=== PATIENT | male | born 1980 | race Caucasian/White ===

== ENCOUNTER 2016-12-17 04:58 | Emergency (ER) | payer OTHER ==
--- NOTE | 2016-12-17 05:17 | EDM.PDOC ---
ED HPI GENERAL MEDICAL PROBLEM - General Chief Complaint: General Stated Complaint: HEAD INJURY Time Seen by Provider: 12/17/16 05:02 - History of Present Illness INITIAL COMMENTS - FREE TEXT/NARRATIVE: HISTORY AND PHYSICAL: History of present illness: The patient is a 36-year-old male with a history of "hyperthyroidism" for which he does not take medications who presents with complaints of a persistent headache and some nausea since getting the right side of his head behind his right ear on Friday night, 3 days ago. The patient states he was working on a car and was using a tool and when they both gave way he sits back and with the force of the release it himself in the head with a tool he was using. He did not pass out or black out and he did not fall to the ground. He has no neck or back pain and has no neurologic changes such as weakness numbness or tingling and no dizziness or lightheadedness. He states initially he had some dull pain at the area of swelling which is improved but today he started having more of a headache in that area and it seemed to radiate and he was worried. He does state that he looked up on the Internet some information and wanted to come here for evaluation. Is not taking anything for his headache such as Tylenol or Motrin. Review of systems: As per history of present illness and below otherwise all systems reviewed and negative. Past medical history: As per history of present illness and as reviewed below otherwise noncontributory. Surgical history: As per history of present illness and as reviewed below otherwise noncontributory. Social history: No reported history of drug or alcohol abuse. Family history: As per history of present illness and as reviewed below otherwise noncontributory. Physical exam: General: Well-developed well-nourished male who is nontoxic and speaks clearly and easily in ED. He moves without any distress and his vital signs are noted by me. HEENT: Atraumatic, normocephalic, there are no palpable bony deformities of the scalp or skull and no soft tissue swelling redness or ecchymosis appreciated. The patient indicates the area at the right occipital soft tissue scalp near the mastoid and the area of tenderness but I do not appreciate any deformities or swelling in this region. The pupils are reactive, negative for conjunctival pallor or scleral icterus, mucous membranes moist, throat clear, neck supple, nontender, trachea midline. There are no midline step-offs and is defects of the cervical spine Lungs: Clear to auscultation, breath sounds equal bilaterally, chest nontender. Heart: S1S2, regular in rhythm no overt murmurs Abdomen: Soft, nondistended, nontender. NABS. Pelvis: Deferred Genitourinary: Deferred. Rectal: Deferred. Extremities: Atraumatic, negative for cords or calf pain. Neurovascular unremarkable. Neuro: Awake, alert, oriented. Cranial nerves II through XII unremarkable. Cerebellum unremarkable. Motor and sensory unremarkable throughout. Exam nonfocal. Gait intact Diagnostics: I offered the patient a CT scan of the head if he wanted more reassurance but I do not feel that it was clinically indicated due to the timeframe and the mechanism of injury. We had a dialogue about head injuries and he feels comfortable not having the CAT scan at this time. Therapeutics: I offered the patient Tylenol or Motrin and he says he will take it when he gets home Impression: Minor head injury/scalp contusion subacute Definitive disposition and diagnosis as appropriate pending reevaluation and review of above. left side head/neck Pain Score (Numeric/FACES): 8 - Related Data Allergies Allergy/AdvReac Type Severity Reaction Status Date / Time No Known Allergies Allergy Verified 12/17/16 05:03 Home Meds: Home Meds . [No Known Home Meds] 12/17/16 [History] Past Medical History - Past Health History Medical/Surgical History: Denies Medical/Surgical History HEENT History: Reports: None Cardiovascular History: Reports: None Respiratory History: Reports: None Gastrointestinal History: Reports: None Genitourinary History: Reports: None Musculoskeletal History: Reports: None Neurological History: Reports: None Psychiatric History: Reports: None Endocrine/Metabolic History: Reports: Hyperthyroidism Hematologic History: Reports: None Oncologic (Cancer) History: Reports: None Dermatologic History: Reports: None - Infectious Disease History Infectious Disease History: Reports: None - Past Surgical History HEENT Surgical History: Reports: None Cardiovascular Surgical History: Reports: None Respiratory Surgical History: Reports: None GI Surgical History: Reports: None Male Surgical History: Reports: None Musculoskeletal Surgical History: Reports: None Social & Family History - Family History Family Medical History: Noncontributory - Tobacco Use Smoking Status *Q: Current Every Day Smoker Years of Tobacco use: 15 Packs/Tins Daily: 0.5 - Recreational Drug Use Recreational Drug Use: No ED ROS GENERAL - Review of Systems Review Of Systems: ROS reveals no pertinent complaints other than HPI. ED EXAM, GENERAL - Physical Exam Exam: See Below (See dictation) Course - Vital Signs Last Recorded V/S: Last Vital Signs Temp 36.6 C 12/17/16 05:04 Pulse 95 12/17/16 05:04 Resp 16 12/17/16 05:04 BP 127/77 12/17/16 05:04 Pulse Ox 99 12/17/16 05:04 Departure - Departure Time of Disposition: 05:21 Disposition: Home, Self-Care 01 Condition: good Clinical Impression: Scalp contusion Qualifiers: Encounter type: initial encounter Qualified Code(s): S00.03XA - Contusion of scalp, initial encounter Blunt head trauma Qualifiers: Encounter type: initial encounter Qualified Code(s): S09.8XXA - Other specified injuries of head, initial encounter - Discharge Information Forms: ED Department Discharge Additional Instructions: The following information is given to patients seen in the emergency department who are being discharged to home. This information is to outline your options for follow-up care. We provide all patients seen in our emergency department with a follow-up referral. The need for follow-up, as well as the timing and circumstances, are variable depending upon the specifics of your emergency department visit. If you don't have a primary care physician on staff, we will provide you with a referral. We always advise you to contact your personal physician following an emergency department visit to inform them of the circumstance of the visit and for follow-up with them and/or the need for any referrals to a consulting specialist. The emergency department will also refer you to a specialist when appropriate. This referral assures that you have the opportunity for followup care with a specialist. All of these measure are taken in an effort to provide you with optimal care, which includes your followup. Under all circumstances we always encourage you to contact your private physician who remains a resource for coordinating your care. When calling for followup care, please make the office aware that this follow-up is from your recent emergency room visit. If for any reason you are refused follow-up, please contact the [facility] emergency department at and ask to speak to the emergency department charge nurse. CANDIDO [facility] Primary care- Internal Medicine and Family [place] [id number] [address] [place], [place] [id number] Please take [id number] Tylenol or ibuprofen for pain and apply ice to area after working if there is sense of inflammation or discomfort. Please followup with local family DrLarry and return to ER as needed and as discussed
[2016-12-17 05:40] VITALS: BP 137/70
== END 2016-12-17 05:37 | disposition home or self-care (01) ==
LOC: MW.ED 04:58
DX: S00.03XA Contusion of scalp, initial encounter (principal); E05.90 Thyrotoxicosis, unspecified without thyrotoxic crisis or storm; F17.210 Nicotine dependence, cigarettes, uncomplicated; X58.XXXA Exposure to other specified factors, initial encounter
CPT/HCPCS: 99282; 99283

== ENCOUNTER 2021-01-23 01:28 | Emergency (ER) | payer SELFPAY ==
--- NOTE | 2021-01-23 01:30 | EDM.PDOC ---
ED HPI GENERAL MEDICAL PROBLEM - General Stated Complaint: BODY ACHES, SWEATS, FEELS WARM Time Seen by Provider: 01/23/21 01:29 Source of Information: Reports: Patient History Limitations: Reports: No Limitations - History of Present Illness INITIAL COMMENTS - FREE TEXT/NARRATIVE: 40-year-old male presents for 9 days of fever, body aches, nonproductive cough, nausea, headache, loss of taste and smell. He has not had the COVID-19 vaccination. He does not have any direct exposure that he is aware of but notes that his daughter was around family member that did test positive for Covid. No vomiting but does feel nauseated. Has been taking Tylenol and Motrin at home with minimal relief. Denies shortness of breath. Bilateral Back Pain Score (Numeric/FACES): 8 - Related Data Allergies Allergy/AdvReac Type Severity Reaction Status Date / Time No Known Allergies Allergy Verified 01/23/21 01:37 Home Meds: Home Meds Ibuprofen [Motrin] 600 mg PO Q6H PRN #30 tab 01/23/21 [Rx] Ondansetron [Zofran ODT] 4 mg PO Q6H PRN #12 tab.dis 01/23/21 [Rx] Past Medical History - Past Health History Medical/Surgical History: Denies Medical/Surgical History HEENT History: Reports: None Cardiovascular History: Reports: None Respiratory History: Reports: None Gastrointestinal History: Reports: None Genitourinary History: Reports: None Musculoskeletal History: Reports: None Neurological History: Reports: None Psychiatric History: Reports: None Endocrine/Metabolic History: Reports: Hyperthyroidism Hematologic History: Reports: None Oncologic (Cancer) History: Reports: None Dermatologic History: Reports: None - Infectious Disease History Infectious Disease History: Reports: None - Past Surgical History HEENT Surgical History: Reports: None Cardiovascular Surgical History: Reports: None Respiratory Surgical History: Reports: None GI Surgical History: Reports: None Male Surgical History: Reports: None Musculoskeletal Surgical History: Reports: None Social & Family History - Family History Family Medical History: No Pertinent Family History ED ROS GENERAL - Review of Systems Review Of Systems: Comprehensive ROS is negative, except as noted in HPI. ED EXAM, GENERAL - Physical Exam Exam: See Below Exam Limited By: No Limitations General Appearance: Alert, WD/WN, No Apparent Distress Ears: Hearing Grossly Normal Nose: Normal Inspection Throat/Mouth: Normal Inspection, Normal Oropharynx, Normal Voice, No Airway Compromise Head: Atraumatic, Normocephalic Neck: Normal Inspection, Supple, Non-Tender Respiratory/Chest: No Respiratory Distress, Lungs Clear, Normal Breath Sounds, No Accessory Muscle Use Cardiovascular: Normal Peripheral Pulses, Tachycardia Extremities: Normal Inspection Neurological: Alert, Normal Cognition, Normal Gait Psychiatric: Normal Affect, Normal Mood Skin Exam: Warm, Dry, Intact, Normal Color Course - Vital Signs Last Recorded V/S: Last Vital Signs Temp 99.8 F 01/23/21 02:00 Pulse 103 H 01/23/21 01:38 Resp 19 01/23/21 01:38 BP 122/84 01/23/21 01:38 Pulse Ox 96 01/23/21 01:38 - Orders/Labs/Meds Orders: Active Orders 24 hr Category Date Time Status Chest 1V Frontal [CR] Stat Exams 01/23/21 01:49 Taken Sodium Chloride 0.9% [Normal Saline] 1,000 ml Med 01/23/21 01:48 Active IV .Bolus Sodium Chloride 0.9% [Saline Flush] Med 01/23/21 01:48 Active 10 ml FLUSH ASDIRECTED PRN Sodium Chloride 0.9% [Saline Flush] Med 01/23/21 01:48 Active 2.5 ml FLUSH ASDIRECTED PRN Saline Lock Insert [OM.PC] Stat Oth 01/23/21 01:48 Ordered Medication Orders Sodium Chloride (Normal Saline) 1,000 mls @ 999 mls/hr IV .Bolus ONE Stop: 01/23/21 02:48 Last Admin: 01/23/21 01:59 Dose: 999 mls/hr Documented by: SEANIKKIIC Sodium Chloride (Sodium Chloride 0.9% 10 Ml Syringe) 10 ml FLUSH ASDIRECTED PRN PRN Reason: Keep Vein Open Last Admin: 01/23/21 01:58 Dose: 10 ml Documented by: SEAGMSANTOS Sodium Chloride (Sodium Chloride 0.9% 2.5 Ml Syringe) 2.5 ml FLUSH ASDIRECTED PRN PRN Reason: Keep Vein Open Last Admin: 01/23/21 01:59 Dose: 2.5 ml Documented by: ELA Labs: Laboratory Tests 01/23/21 01/23/21 01/23/21 Range/Units 01:45 01:50 01:50 WBC 6.41 (4.0-11.0) K/uL RBC 4.94 (4.50-5.90) M/uL Hgb 15.6 (13.0-17.0) g/dL Hct 45.5 (38.0-50.0) % MCV 92.1 (80.0-98.0) fL MCH 31.6 (27.0-32.0) pg MCHC 34.3 (31.0-37.0) g/dL RDW Std Deviation 47.1 (28.0-62.0) fl RDW Coeff of Izaiah 14 (11.0-15.0) % Plt Count 154 (150-400) K/uL MPV 11.20 (7.40-12.00) fL Neut % (Auto) 63.9 (48.0-80.0) % Lymph % (Auto) 25.9 (16.0-40.0) % Weber % (Auto) 10.0 (0.0-15.0) % Eos % (Auto) 0.0 (0.0-7.0) % Baso % (Auto) 0.2 (0.0-1.5) % Neut # (Auto) 4.1 (1.4-5.7) K/uL Lymph # (Auto) 1.7 (0.6-2.4) K/uL Weber # (Auto) 0.6 (0.0-0.8) K/uL Eos # (Auto) 0.0 (0.0-0.7) K/uL Baso # (Auto) 0.0 (0.0-0.1) K/uL Nucleated RBC % 0.0 /100WBC Nucleated RBCs # 0 K/uL Sodium 137 (136-148) mmol/L Potassium 3.9 (3.5-5.1) mmol/L Chloride 98 (98-107) mmol/L Carbon Dioxide 31.7 (21.0-32.0) mmol/L BUN 10 (7.0-18.0) mg/dL Creatinine 1.2 (0.8-1.3) mg/dL Est Cr Clr Drug Dosing 96.82 mL/min Estimated GFR (MDRD) > 60.0 ml/min Glucose 102 (74-106) mg/dL Calcium 8.0 L (8.5-10.1) mg/dL Total Bilirubin 0.3 (0.2-1.0) mg/dL AST 31 (15-37) IU/L ALT 23 (14-63) IU/L Alkaline Phosphatase 73 (46-116) U/L Total Protein 7.9 (6.4-8.2) g/dL Albumin 3.4 (3.4-5.0) g/dL Globulin 4.5 H (2.6-4.0) g/dL Albumin/Globulin Ratio 0.8 L (0.9-1.6) Influenza Type A RNA NEGATIVE (NEGATIVE) Influenza Type B RNA NEGATIVE (NEGATIVE) SARS-CoV-2 RNA (CLAUDIA) POSITIVE H (NEGATIVE) Meds: Medications Generic Name Dose Route Start Last Admin Trade Name Freq PRN Reason Stop Dose Admin Sodium Chloride 1,000 mls @ 999 mls/hr 01/23/21 01:48 01/23/21 01:59 Normal Saline IV 01/23/21 02:48 999 mls/hr .Bolus ONE Administration Sodium Chloride 10 ml 01/23/21 01:48 01/23/21 01:58 Sodium Chloride 0.9% 10 Ml Syringe FLUSH 10 ml ASDIRECTED PRN Administration Keep Vein Open Sodium Chloride 2.5 ml 01/23/21 01:48 01/23/21 01:59 Sodium Chloride 0.9% 2.5 Ml Syringe FLUSH 2.5 ml ASDIRECTED PRN Administration Keep Vein Open Discontinued Medications Generic Name Dose Route Start Last Admin Trade Name Tanq PRN Reason Stop Dose Admin Acetaminophen 1,000 mg 01/23/21 01:48 01/23/21 02:00 Acetaminophen 500 Mg Tab PO 01/23/21 01:49 1,000 mg ONETIME ONE Administration Ketorolac Tromethamine 15 mg 01/23/21 01:48 01/23/21 01:59 Ketorolac 15 Mg/Ml Sdv IVPUSH 01/23/21 01:49 15 mg STAT STA Administration Ondansetron HCl 4 mg 01/23/21 01:48 01/23/21 02:00 Ondansetron 4 Mg/2 Ml Sdv IVPUSH 01/23/21 01:49 4 mg ONETIME ONE Administration - Re-Assessments/Exams Free Text/Narrative Re-Assessment/Exam: 01/23/21 01:50 Will get basic labs, treat symptomatically IVFB toradol/tylenol/zofran, will get COVID swab and chest xr. 01/23/21 02:48 COVID-19 test is positive. Will discharge patient with instructions to continue Tylenol and Motrin as needed for body aches and fever relief. Will discharge with a prescription for Zofran for his nausea. Departure - Departure Time of Disposition: 02:48 Disposition: Home, Self-Care 01 Condition: Good Clinical Impression: COVID-19 - Discharge Information Prescriptions: Ibuprofen [Motrin] 600 mg PO Q6H PRN #30 tab PRN Reason: Fever Ondansetron [Zofran ODT] 4 mg PO Q6H PRN #12 tab.dis PRN Reason: Nausea Instructions: COVID-19 Vaccine Information, COVID-19 Frequently Asked Questions Referrals: PCP,None [Primary Care Provider] - Additional Instructions: Your labs all look good. Your chest x-ray looks good. Your COVID-19 test is positive. Attached is information regarding COVID-19. I sent a prescription for high-dose Motrin as well as Zofran to your pharmacy. Motrin is just like [id number] Motrin but a higher dose. Zofran is a medicine that use as needed for nausea. The following information is given to patients seen in the emergency department who are being discharged to home. This information is to outline your options fo r follow-up care. We provide all patients seen in our emergency department with a follow-up referral. The need for follow-up, as well as the timing and circumstances, are variable depending upon the specifics of your emergency department visit. If you don't have a primary care physician on staff, we will provide you with a referral. We always advise you to contact your personal physician following an emergency department visit to inform them of the circumstance of the visit and for follow-up with them and/or the need for any referrals to a consulting specialist. The emergency department will also refer you to a specialist when appropriate. This referral assures that you have the opportunity for follow-up care with a specialist. All of these measure are taken in an effort to provide you with optimal care, which includes your follow-up. Under all circumstances we always encourage you to contact your private physician who remains a resource for coordinating your care. When calling for follow-up care, please make the office aware that this follow-up is from your recent emergency room visit. If for any reason you are refused follow-up, please contact the [facility] Emergency Department at and asked to speak to the emergency department charge nurse. Please follow up with your primary care physician. If you do not have a primary care physician, see below: [facility] [address], [place] [id number] My [facility] [address], [place] [id number] [facility] [address] [place] [address] Sepsis Event Note (ED) - Focused Exam Vital Signs: Vital Signs Temp Temp Pulse Resp BP Pulse Ox 01/23/21 02:00 99.8 F 01/23/21 01:38 99.8 F 103 H 19 122/84 96 - My Orders Last 24 Hours: My Active Orders 01/23/21 01:48 Sodium Chloride 0.9% [Normal Saline] 1,000 ml IV .Bolus Sodium Chloride 0.9% [Saline Flush] 10 ml FLUSH ASDIRECTED PRN Sodium Chloride 0.9% [Saline Flush] 2.5 ml FLUSH ASDIRECTED PRN Saline Lock Insert [OM.PC] Stat 01/23/21 01:49 Chest 1V Frontal [CR] Stat - Assessment/Plan Last 24 Hours: My Active Orders 01/23/21 01:48 Sodium Chloride 0.9% [Normal Saline] 1,000 ml IV .Bolus Sodium Chloride 0.9% [Saline Flush] 10 ml FLUSH ASDIRECTED PRN Sodium Chloride 0.9% [Saline Flush] 2.5 ml FLUSH ASDIRECTED PRN Saline Lock Insert [OM.PC] Stat 01/23/21 01:49 Chest 1V Frontal [CR] Stat
[2021-01-23] MEDS ORDERED: Sodium Chloride 0.9% 2.5 ML Syringe FLUSH PRN (01:48)
[2021-01-23] MEDS ORDERED: Ketorolac 15 MG/ML SDV IVPUSH STA (01:48)
[2021-01-23] MEDS ORDERED: Acetaminophen 500 MG Tab PO ONE (01:48)
[2021-01-23] MEDS ORDERED: Sodium Chloride 0.9% 10 ML Syringe FLUSH PRN (01:48)
[2021-01-23] MEDS ORDERED: Sodium Chloride 0.9% 1,000 ML IV ONE (01:48)
[2021-01-23] MEDS ORDERED: Ondansetron 4 MG/2 ML SDV IVPUSH ONE (01:48)
[2021-01-23 02:22] LABS: BLOOD UREA NITROGEN,BUN 10 mg/dL (7.0-18.0); CARBON DIOXIDE,CO2 31.7 mmol/L (21.0-32.0); CHLORIDE,CL 98 mmol/L (98-107); GLUCOSE RANDOM 102 mg/dL (74-106); POTASSIUM,K 3.9 mmol/L (3.5-5.1); SODIUM,NA 137 mmol/L (136-148)
[2021-01-23 02:36] LABS: CORONAVIRUS COVID-19 NAA POSITIVE (NEGATIVE); INFLUENZA A NAA NEGATIVE (NEGATIVE); INFLUENZA B NAA NEGATIVE (NEGATIVE)
--- NOTE | 2021-01-23 03:11 | CR ---
HISTORY: Possible COVID-19 COMPARISON: None available FINDINGS: A portable erect AP view of the chest was obtained at 0216 hours. The lungs are clear. No focal or diffuse infiltrates are present. The heart is normal in size. The mediastinum is normal in appearance. The osseous structures are normal in appearance for the patient`s age. IMPRESSION: Normal portable chest single view. Dictated by Rafael Barrientos MD @ 01/23/2021 3:10:[address] Rafael Barrientos @ Jan 23 2021 3:10AM
[2021-01-23 03:16] VITALS: BP 134/76; PULSE 94
== END 2021-01-23 03:16 | disposition home or self-care (01) ==
LOC: MW.ED 01:28
DX: U07.1 COVID-19 (principal)
CPT/HCPCS: 0240U; 36415; 71045; 80053; 85025; 96374; 96375; 99283; A9270; J1885; J2405; J7030

== ENCOUNTER 2021-10-19 02:18 | Emergency (ER) | payer SELFPAY ==
[2021-10-19 06:06] VITALS: BP 115/72; PULSE 89
== END 2021-10-19 06:06 | disposition home or self-care (01) ==
LOC: MW.ED 02:18
DX: T40.2X1A Poisoning by other opioids, accidental (unintentional), initial encounter (principal)
CPT/HCPCS: 71045; 71045-26; 93005; 93010; 99283; 99284-25

== ENCOUNTER 2022-07-09 17:15 | Emergency (ER) | payer SELFPAY ==
[2022-07-09 18:22] VITALS: BP 142/89
[2022-07-09 19:33] VITALS: PULSE 70
== END 2022-07-09 19:32 ==
LOC: MW.ED 17:15
DX: Z02.89 Encounter for other administrative examinations (principal)
CPT/HCPCS: 99282

== ENCOUNTER 2023-06-18 16:49 | Emergency (ER) | payer SELFPAY ==
[2023-06-18 17:15] VITALS: BP 141/81
[2023-06-18 18:00] LABS: CORONAVIRUS COVID-19 NAA POSITIVE (NEGATIVE); INFLUENZA A NAA NEGATIVE (NEGATIVE); INFLUENZA B NAA NEGATIVE (NEGATIVE)
[2023-06-18 19:03] VITALS: PULSE 75
== END 2023-06-18 18:26 | disposition home or self-care (01) ==
LOC: MW.ED 16:49
DX: U07.1 COVID-19 (principal); I10 Essential (primary) hypertension; F17.200 Nicotine dependence, unspecified, uncomplicated
CPT/HCPCS: 0240U; 99283

== ENCOUNTER 2023-07-31 20:56 | Emergency (ER) | payer BC ==
[2023-07-31] MEDS ORDERED: Acetaminophen 325 MG Tab PO ONE (22:09)
[2023-07-31] MEDS ORDERED: Ibuprofen 600 MG Tab PO ONE (22:09)
[2023-07-31 22:36] LABS: CORONAVIRUS COVID-19 NAA NEGATIVE (NEGATIVE); INFLUENZA A NAA POSITIVE (NEGATIVE); INFLUENZA B NAA NEGATIVE (NEGATIVE); RESPIRATORY SYNCYTIAL VIR NAA NEGATIVE (NEGATIVE)
[2023-07-31 22:49] VITALS: BP 162/86; PULSE 99
== END 2023-07-31 22:50 | disposition home or self-care (01) ==
LOC: MW.ED 20:56
DX: J10.1 Influenza due to other identified influenza virus with other respiratory manifestations (principal); I10 Essential (primary) hypertension; Z20.822 Contact with and (suspected) exposure to COVID-19
CPT/HCPCS: 0241U; 99283; A9270